=== PATIENT | female | born 1970 | race Caucasian/White ===

== ENCOUNTER 2018-05-15 17:45 | Emergency (ER) | payer OTHER ==
[~2018-05-15] VITALS: Ht 167.6 cm; Wt 66.7 kg
--- OUTSIDE RECORDS SUMMARY | 2018-05-15 17:47 | XMS REPORT | Clinical Summary ---
Author Author [facility] Organization [facility] Address Unknown Phone Unavailable Care Team Providers Care Contract Law Specialist Name Role Phone Jas Henley MD PCP Allergies Comments Active Allergy Reactions Severity Noted Date Aspirin GI 08/29/2017 Intolerance Shellfish Derived Anaphylaxis High 08/29/2017 Gums bleed, eyes bloodshot Carbamazepine Other (See 08/29/2017 Comments) Medications End Date Status Medication Sig Dispensed Refills Start Date Active levothyroxine (SYNTHROID, 100 mcg. 0 LEVOTHROID) 100 MCG 6 tablet Active SUMAtriptan (IMITREX) 100 100 mg. 0 MG tablet 6 Status Hospital, Clinic, or Ordered Dose Route Frequency Start End Date Other Facility Date Administered Medication Active botulinum toxin Type A 100 Units inj once 10/29/19 (Cosm) (BOTOX) injection 16 100 Units Active Problems Not on file Encounters Care Team Description Date Type Specialty Celio Davis MD 03/10/2018 Office Visit Otolaryngology Lorie Rodrigues MA 02/13/2018 Documentation Otolaryngology Celio Davis MD Facial paralysis (Primary Dx) 12/02/2017 Office Visit OtolaryngologCelio Fields MD Facial paralysis (Primary Dx) 08/29/2017 Office Visit Otolaryngology Celio Davis MD Facial paralysis (Primary Dx) 05/25/2017 Office Visit Otolaryngology after 05/14/2017 Social History Date Tobacco Use Types Packs/Day Years Used Never Smoker Smokeless Tobacco: Never Used Alcohol Use Drinks/Week oz/Week Comments No Sex Assigned at Date Recorded Not on file Industry Job Start Date Occupation Not on file Not on file Not on file Travel End Travel History Travel Start No recent travel history available. Last Filed Vital Signs Time Taken Vital Sign Reading 03/10/2018 12:09 PM [facility] Blood Pressure 170/99 03/10/2018 12:09 PM [facility] Pulse 89 05/25/2017 9:26 AM [facility] Temperature 36.6 C (97.9 F) - Respiratory Rate - - Oxygen Saturation - - Inhaled Oxygen - Concentration 03/10/2018 12:09 PM [facility] Weight 68 kg (150 lb) 03/10/2018 12:09 PM [facility] Height 167.6 cm (5' 6") 03/10/2018 12:09 PM [facility] Body Mass Index 24.21 Plan of Treatment Care Team Description Date Type Specialty Celio Davis MD [address] [address] 05/29/2018 Office Visit Otolaryngology Health Maintenance Due Date Last Done Comments CERVICAL CANCER SCREENING 1990 INFLUENZA VACCINE 10/26/2017 Results Not on fileafter 05/14/2017 Insurance Payer Benefit Subscriber ID Type Phone Address Plan / Group [facility] xxxxxxxxx HMO/PPO THCARE CHOICE/CHO ICE + CIGNA [place] xxxxxxxxxxx HMO [employer] HMO Advance Directives Patient has advance care planning documents on file. For more information, damon bess contact: Preston Paiz [address] [place] [address]
--- OUTSIDE RECORDS SUMMARY | 2018-05-15 17:47 | XMS REPORT | Clinical Summary ---
Author Author JANICE [facility] Address Unknown Phone Unavailable Care Team Providers Care Client Relations Associate Name Role Phone Sharpless PCP Allergies Comments Active Allergy Reactions Severity Noted Date Aspirin Nausea Only, 03/03/2007 Nausea And Vomiting Shellfish Containing Anaphylaxis, High 12/07/2013 Products Rash, Shortness Of Breath Other reaction(s): Other BLISTERS IN MOUTH Blisters and red eyes Carbamazepine Other (See High 03/03/2007 Comments), Swelling Medications End Date Status Medication Sig Dispensed Refills Start Date Active levothyroxine (SYNTHROID, Take 100 mcg 0 LEVOTHROID) 100 MCG by mouth tablet Every morning on an empty stomach. Active promethazine (PHENERGAN) Take 25 mg by 0 25 MG tablet mouth every 6 (six) hours as needed for Nausea. Active HYDROcodone-acetaminophen Take 1 tablet 0 (NORCO 5-325) 5-325 mg by mouth per tablet every 6 (six) hours as needed for Pain. Active SUMAtriptan (IMITREX) 50 Take 50 mg by 0 MG tablet mouth once as needed for Headaches. Active ibuprofen (ADVIL,MOTRIN) Take 200 mg 0 200 MG tablet by mouth every 6 (six) hours as needed for Pain. Active Problems No known active problems Social History Date Tobacco Use Types Packs/Day Years Used Never Smoker Smokeless Tobacco: Never Used Alcohol Use Drinks/Week oz/Week Comments No Sex Assigned at Date Recorded Not on file Industry Job Start Date Occupation Not on file Not on file Not on file Travel End Travel History Travel Start No recent travel history available. Last Filed Vital Signs Not on file Plan of Treatment Not on file Implants Device Identifier Shelf Expiration Date Model / Serial / Lot Implanted Type Area Manufactur er 07/26/2018 [id number] / / [id number] Sys Del Axios Stent [id number] - Stents-Per DRESDEN [id number] ipheral SCI:ENDO Implanted: Qty: 1 on 10/26/2016 by Lisa Figueroa MD Results Not on fileafter 05/14/2017 Insurance Payer Benefit Subscriber ID Type Phone Address Plan / Group BLUE CROSS[employer] BCBS PPO xxxxxxxxxxxx PPO [phone] [address] [place] [address] CHOICE CIGNA - MGD CARE CIGNA COH xxxxxxxxxxx HMO/POS NETWORK
--- OUTSIDE RECORDS SUMMARY | 2018-05-15 17:47 | XMS REPORT ---
Author Author [facility] Address Unknown Phone Unavailable Care Team Providers Care Adjunct Professor Of Law Name Role Phone LISA FIGUEROA Unavailable Unavailable Problems This patient has no known problems. Allergies, Adverse Reactions, Alerts This patient has no known allergies or adverse reactions. Medications This patient has no known medications. Results Test Description Test Time Test Comments Text Results Atomic Results Result Comments TISSUE EXAM 2016-12-10 16:25:00 Surgical Pathology Report Case: [id number] Authorizing Provider: Lisa Figueroa MD Collected: 12/07/2016 1303 Ord ering Location: [facility] Endoscopy Received: 12/07/2016 1620 Services Pathologist: Aureliano River MD Specimen: Polyp, Duodenum A. DUODENUM, POLYP, BIOPSY: - POLYPOID DUODENAL MUCOSA WITH CHRONIC INFLAMMATION AND REGENERATIVE CHANGES - NEGATIVE FOR DYSPLASIA/ MALIGNANCY (SEE COMMENT) Signing Pathologist Direct Phone Line: [phone] signed by Aureliano River MD on 12/10/2016 at 4:25 PMSection shows duodenal mucosa with focal mild villous blunting, mucodepletion, chronic inflammation, increased paneth cells and severe reactive changes of the underlying crypts. Findings are compatible with reactive changes. Deeper levels are examined. No definite dysplasia/ malignancy is seen.[id number] pseudocystDuodenal polyp Received in formalin labeled "polyp, duodenum" is a single fragment measuring 0.3 cm in greatest dimension. The specimen is entirely submitted in A1. DB/ew Performed.
[2018-05-15 20:11] LABS: BASOPHILS % 0.5 % (0.0-1.0); EOSINOPHILS # (AUTO) 0.1 (0.0-0.4); EOSINOPHILS % 1.5 % (0.0-6.0); HEMATOCRIT 39.3 % (34.2-44.1); HEMOGLOBIN 13.4 g/dL (12.0-16.0); LYMPHOCYTES # (AUTO) 2.2 (1.0-3.2); LYMPHOCYTES % 33.5 % (18.0-39.1); MEAN CORPUSCULAR HEMOGLOBIN 28.6 pg (28-32); MEAN CORPUSCULAR HGB CONC 34.1 g/dL (31-35); MEAN CORPUSCULAR VOLUME 83.8 fL (81-99); MONOCYTES # (AUTO) 0.5 (0.2-0.8); MONOCYTES % 7.2 % (4.4-11.3); NEUTROPHILS # (AUTO) 3.7 (2.1-6.9); NEUTROPHILS % 56.7 % (38.7-80.0); PLATELET COUNT 290 x10e3/uL (140-360); RED BLOOD COUNT 4.69 x10e6/uL (3.6-5.1); RED CELL DISTRIBUTION WIDTH 12.7 % (11.7-14.4)
[2018-05-15 20:26] LABS: BILIRUBIN,URINE NEGATIVE (NEGATIVE); CLARITY,URINE CLEAR (CLEAR); COLOR,URINE YELLOW (YELLOW); KETONES,URINE 1+ (NEGATIVE); LEUKOCYTE ESTERASE ,URINE NEGATIVE (NEGATIVE); NITRITE,URINE NEGATIVE (NEGATIVE); PROTEIN,URINE DIPSTICK NEGATIVE (NEGATIVE); URINE UROBILINOGEN 0.2 mg/dL (0.2 - 1)
[2018-05-15 20:27] LABS: BACTERIA,URINE FEW /HPF; EPITHELIAL CELLS,URINE FEW /LPF; RBC,URINE 0-5 /HPF (0-5)
[2018-05-15 20:33] LABS: ALBUMIN 4.4 g/dL (3.5-5.0); ALBUMIN/GLOBULIN RATIO 1.2 (0.8-2.0); ANION GAP 18.2 mmol/L (8-16); CALCIUM 9.6 mg/dL (8.4-10.2); CREATININE, SERUM 1.05 mg/dL (0.57-1.11); POTASSIUM 4.2 mmol/L (3.5-5.1)
--- NOTE | 2018-05-15 20:34 | NUR ---
RC'D CALL FROM LAB REGARDING BS 517. DR CANDELARIO INFORMED.
[2018-05-15 20:40] LABS: PREGNANCY TEST, URINE NEGATIVE (NEGATIVE)
[2018-05-15] MEDS ORDERED: SODIUM CHLORIDE 0.9% 1000ML 1,000 ML IV ONE (23:15)
[2018-05-15] MEDS ORDERED: INSULIN REGULAR, HUMAN 100 UNIT/1 ML 3ML VIAL SQ ONE (23:15)
[2018-05-16] MEDS ORDERED: INSULIN REGULAR, HUMAN 100 UNIT/1 ML 3ML VIAL SQ ONE (01:00)
[2018-05-16 02:00] VITALS: BP 128/90
[2018-05-16] MEDS ORDERED: METFORMIN HCL500 MG PO (02:00)
[2018-05-16] MEDS ORDERED: MACROBID 100 M100 MG PO (02:00)
== END 2018-05-16 02:14 | disposition home or self-care (01) ==
LOC: ER 17:45
DX: E11.65 Type 2 diabetes mellitus with hyperglycemia (principal); R53.83 Other fatigue; N30.90 Cystitis, unspecified without hematuria
CPT/HCPCS: 36415; 80053; 81001; 81025; 82150; 82948; 83036; 83690; 85025; 96372 ×2; 99283; J1817; J7030